=== PATIENT | female | born 1975 | race Caucasian/White ===

== ENCOUNTER 2016-08-25 11:47 | Emergency (ER) | payer OTHER, BC ==
[~2016-08-25 11:47] MED LIST: DICL75TA PO
[2016-08-25 11:51] VITALS: BP 143/88; PULSE 74; RESP 16; TEMP 97.8; O2SAT 96
--- NOTE | 2016-08-25 12:22 | PD ---
HPI Chief Complaint: Medical Clearance Time Seen by Provider: 12:15 Travel History International Travel<30 days: No Contact w/Intl Traveler<30days: No Traveled to known affect area: No History of Present Illness HPI Patient is a 41-year-old female who presents emergency department for medical clearance. She states that she needs a letter clearing her to go back to work as a [employer]. She was seen and evaluated in the emergency department on 08/19/16 and diagnosed with a muscle strain to her right shoulder. Patient reports improvement in her symptoms. Patient states that she feels well enough to go back to work. PFSH Past Medical History Medical History: Denies Significant Hx Social History Alcohol Use: No Tobacco Use: No Substance Use: No Allergies-Medications (Allergen,Severity, Reaction): Coded Allergies: Nexium (Verified Allergy, Severe, 08/19/16) Prilosec (Verified Allergy, Severe, 08/19/16) Reported Meds & Prescriptions Reported Meds & Active Scripts Active Diclofenac Sodium DR (Diclofenac Sodium) 75 Mg Tabdr 75 Mg PO BID PRN Review of Systems Except as stated in HPI: all other systems reviewed are Neg Physical Exam Narrative GENERAL: Well-nourished, well-developed patient. SKIN: Warm and dry. HEAD: Normocephalic. EYES: No scleral icterus. No injection or drainage. NECK: Supple, trachea midline. No JVD or lymphadenopathy. CARDIOVASCULAR: Regular rate and rhythm without murmurs, gallops, or rubs. RESPIRATORY: Breath sounds equal bilaterally. No accessory muscle use. GASTROINTESTINAL: Abdomen soft, non-tender, nondistended. MUSCULOSKELETAL: No cyanosis, or edema. Negative apprehension test, patient is able to fully rotate her right arm and externally, she can fully abduct her right arm without pain. BACK: Nontender without obvious deformity. No CVA tenderness. Data Data Last Documented VS Vital Signs Date Time Temp Pulse Resp B/P Pulse Ox O2 Delivery O2 Flow Rate FiO2 08/25/16 11:51 97.8 74 16 143/88 96 Room Air MDM Medical Decision Making Medical Screen Exam Complete: Yes Emergency Medical Condition: Yes Interpretation(s) Vital Signs Date Time Temp Pulse Resp B/P Pulse Ox O2 Delivery O2 Flow Rate FiO2 08/25/16 11:51 97.8 74 16 143/88 96 Room Air Differential Diagnosis Muscle strain versus spasm versus tear versus tendinitis versus other Narrative Course Patient is a 41-year-old female who presented to emergency department for medical clearance. Patient was seen and evaluated in the emergency department on 19 August and diagnosed with a muscle strain, at that time she was unable to abduct her arm past 90, today she has full range of motion and is neurologically intact. At this time patient will be cleared to return to work. 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 She was encouraged to take diclofenac as needed and as directed for pain. Patient was to follow-up with her primary doctor return to emergency department for any new or worsening symptoms. Patient is stable for discharge. 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
== END 2016-08-25 12:46 | disposition home or self-care (01) ==
LOC: NEPB 11:47
DX: Z02.89 Encounter for other administrative examinations (principal)
CPT/HCPCS: 99281